=== PATIENT | male | born 1940 | race Caucasian/White ===

== ENCOUNTER 2021-09-16 23:56 | Inpatient (IN) | payer MEDICARE ==
[~2021-09-16] VITALS: Ht 177.8 cm; Wt 98.4 kg
[2021-09-17] MEDS ORDERED: GABA-532 PO (00:16)
[2021-09-17] MEDS ORDERED: ALBU8.5H8 IH (00:16)
[2021-09-17] MEDS ORDERED: TRAZ-257 PO (00:16)
[2021-09-17] MEDS ORDERED: FERR325T28 PO (00:16)
[2021-09-17] MEDS ORDERED: FURO20TA4 PO (00:16)
[2021-09-17] MEDS ORDERED: NICO-671 TD (00:16)
[2021-09-17] MEDS ORDERED: METF-440 PO (00:16)
[2021-09-17] MEDS ORDERED: FLUT1DIS28 IH (00:16)
[2021-09-17] MEDS ORDERED: PANT40TA49 PO (00:16)
--- NOTE | 2021-09-17 00:21 | NUR ---
Lab at bedside.
--- NOTE | 2021-09-17 00:34 | NUR ---
xray at bedside.
[2021-09-17 00:38] LABS: HEMATOCRIT 24.1 % (36.7-47.1); MEAN CORPUSCULAR HEMOGLOBIN 20.8 uug (23.8-33.4); MEAN CORPUSCULAR VOLUME 67.7 fL (73.0-96.2); PLATELET COUNT (AUTO) 240 K/uL (152-348)
[2021-09-17 00:49] LABS: NEUTROPHILS % (MANUAL) 0 % (42-75)
[2021-09-17 00:50] LABS: CREATININE 1.2 mg/dL (0.6-1.3); POTASSIUM 4.4 mmol/L (3.5-5.1)
[2021-09-17 00:56] LABS: BILIRUBIN,DIRECT 0.1 mg/dL (0.0-0.2); BILIRUBIN,TOTAL 0.3 mg/dL (0.2-1.0); TOTAL PROTEIN, SERUM 7.7 g/dL (6.4-8.2)
[2021-09-17] MEDS ORDERED: LORAZEPAM 0.5 MG TABLET PO ONE (01:30)
[2021-09-17] MEDS ORDERED: LORAZEPAM 1 MG TABLET ONE (01:52)
--- NOTE | 2021-09-17 02:11 | NUR ---
CALLED [facility], KARLIE PA.
[2021-09-17] MEDS ORDERED: ALBUTEROL SULFATE 8 GM HFA.AER.AD IH PRN (02:30)
[2021-09-17] MEDS ORDERED: HYDROCODONE/APAP 5-325MG TABLET PO PRN (02:30)
[2021-09-17] MEDS ORDERED: ONDANSETRON 4 MG/2 ML VIAL IV PRN (02:30)
[2021-09-17] MEDS ORDERED: REMEDY ESSENTIAL ZINC PASTE 113 GM TP PRN (02:30)
[2021-09-17] MEDS ORDERED: ACETAMINOPHEN 325 MG TABLET PO PRN (02:30)
[2021-09-17] MEDS ORDERED: MAGNESIUM HYDROXIDE 30 ML LIQUID UDC PO PRN (02:30)
[2021-09-17] MEDS ORDERED: TEMAZEPAM 15 MG CAPSULE PO PRN (02:30)
[2021-09-17] MEDS ORDERED: MORPHINE SULFATE 2 MG/1 ML DISP.SYRIN IV PRN (02:30)
--- NOTE | 2021-09-17 02:43 | NUR ---
PT A/O X3, EXPLAINED THAT PROTOCOLS OR REQUIRING IV BUT PT HAS STRONGLY REFUSED DESPITE EDUCATING. HONORED PT'S RIGHTS
--- NOTE | 2021-09-17 03:20 | NUR ---
GAVE REPORT TO
--- NOTE | 2021-09-17 03:50 | NUR ---
Admitted a 81 years old male with Dx of CHF, with 2ndary Dx of Microcytic Anemia. Patient AAOx3. On a 5150 hold up on 09/18 at 11:50am for DTS. Patient denies any SI at this time. Refused to have IV insertion at the ER and here at the unit. Requesting to have IV place in the morning. 1:1 sitter on site. Pale in appearance. NSR with PVC's and WAP on tele with HR of 88/min.Routine admission care done. Plan of care initiated. Safety measure initiated. Continue to monitor.
[2021-09-17 04:00] VITALS: BP 107/56
--- NOTE | 2021-09-17 04:00 | NUR ---
Pt. admitted to tele , under care of Darrell Jenkins Dx: Anemia, SI 5150 hold DTS Belongs List completed
[2021-09-17] MEDS ORDERED: ALBUTEROL SULFATE 2.5 MG/3 ML NEBU NEB PRN (05:45)
--- NOTE | 2021-09-17 06:24 | NUR ---
Patient asleep, but easily arouse to verbal stimuli. Still refusing to have IV insertion as well as blood draw. Stated "They already took my blood at the emergency room and that is it, Im not giving anymore". 1:1 sitter on site. Safety measure maintained.
[2021-09-17] MEDS ORDERED: PANTOPRAZOLE SODIUM 40 MG TABLET.DR PO SCH (07:00)
--- NOTE | 2021-09-17 07:48 | NUR ---
received awake sitter at bedside for safety. no ss of pain or sob noted. verbally responsive states he slept well dt medication given last night. comfortable. safety maintained. cont to monitor.
[2021-09-17] MEDS ORDERED: METFORMIN HCL 500 MG TABLET PO SCH (08:00)
[2021-09-17 08:30] VITALS: BP 125/52
[2021-09-17] MEDS ORDERED: FUROSEMIDE 20 MG TABLET PO SCH (09:00)
[2021-09-17] MEDS ORDERED: ASPIRIN 81 MG TAB.CHEW PO SCH (09:00)
[2021-09-17] MEDS ORDERED: NICOTINE 14 MG/24HR PATCH TD SCH (09:00)
[2021-09-17] MEDS ORDERED: FLUTICASONE/VILANTEROL 1 EACH BLST.W.DEV INH SCH (09:00)
[2021-09-17 12:00] VITALS: BP 114/63
--- NOTE | 2021-09-17 12:57 | NUR ---
for discharge to [facility] verbalized understanding. gave report to dariusz elkins
[2021-09-17] MEDS ORDERED: SERTRALINE HCL 50 MG TABLET PO SCH (13:00)
--- NOTE | 2021-09-17 13:30 | NUR ---
discharged to [facility] in stable condition. received by vincent elkins.
[2021-09-17] MEDS ORDERED: TRAZODONE 100 MG TABLET PO SCH (21:00)
[2021-09-17] MEDS ORDERED: GABAPENTIN 300 MG CAPSULE PO SCH (21:00)
== END 2021-09-17 13:30 | DRG 378 ==
LOC: ER 09-17 00:06 → TELE3 09-17 03:31
DX: K27.4 Chronic or unspecified peptic ulcer, site unspecified, with hemorrhage (principal); I48.20 Chronic atrial fibrillation, unspecified; I50.32 Chronic diastolic (congestive) heart failure; R45.851 Suicidal ideations; D50.0 Iron deficiency anemia secondary to blood loss (chronic); N18.2 Chronic kidney disease, stage 2 (mild); F17.210 Nicotine dependence, cigarettes, uncomplicated; F32.9 Major depressive disorder, single episode, unspecified; M19.90 Unspecified osteoarthritis, unspecified site; F19.10 Other psychoactive substance abuse, uncomplicated
CPT/HCPCS: 36415; 70030-TC; 71045; 85025; 93005; 93307; A4663; G0378

== ENCOUNTER 2021-09-17 14:42 | Inpatient (IN) | payer MEDICARE ==
[~2021-09-17] VITALS: Ht 170.2 cm; Wt 96.6 kg
[~2021-09-17 14:42] MED LIST: ALBU8.5H8 IH; FERR325T28 PO; FLUT1DIS28 IH; FURO20TA4 PO; GABA-532 PO; METF-440 PO; NICO-671 TD; PANT40TA49 PO; TRAZ-257 PO
--- NOTE | 2021-09-17 15:30 | NUR ---
GPS: RECEIVED REPORT FROM BRODERICK TAMEZ FROM [facility]RD FLOOR [facility] RE: PT ADMISSION TO UNIT. ON 5150, PROBABLE CAUSE DANGER TO SELF HOLD EXPIRING TOMORROW 09/18/21 AT 1150AM. PER 5150, PT HOLDING KNIFE AND IN POSSESSION OF BUNCH OF PILLS. PT HAS LOW HcT LEVEL AND WAS MEDICALLY CLEARED PER MD. WITH HISTORY OF CHRONIC ANEMIA, MD, MAJOR DEPRESSIVE DISORDER, COGNITIVE DISORDER, TOBACO AND ETOH ABUSE AND GI BLEEDING. PT REFUSED LAB WORKS, GI WORKUP AND IV INSERTION AT MED SURG. PT WAS GIVEN ZOLOFT. PT HAVE HARD OF HEARING BILATERALLY, WITH HEARING AID LEFT AT HOME. PT AMBULATORY, WITH CANE. ALLERGY TO PENICILLIN AND FULL CODE STATUS. DR WHITTAKER INFORMED ABOUT PT ADMISSION. CITY COUNCIL MEMBER DR GOVEA MADE AWARE. RECEIVED PT AT THE FACILITY, PT FLAT AFFECT, HAVE HARD OF HEARING, EASILY GETS IRRITABLE, FLAT AFFECT, DENIES SUICIDAL IDEATION. COOPERATIVE BUT SOMEWHAT GUARDED. PT DENIES ANY PAIN OR DISCOMFORT. WILL MONITOR PT.
[2021-09-17] MEDS ORDERED: MAG HYDROX/AL HYDROX/SIMETH 30 ML LIQUID UDC PO PRN (15:45)
[2021-09-17] MEDS ORDERED: MAGNESIUM HYDROXIDE 30 ML LIQUID UDC PO PRN (15:45)
[2021-09-17] MEDS ORDERED: TEMAZEPAM 7.5 MG CAPSULE PO PRN (15:45)
[2021-09-17 16:45] VITALS: BP 124/70
[2021-09-17 19:45] VITALS: BP 100/53
[2021-09-17] MEDS: ACETAMINOPHEN 325 MG TABLET PO PRN (20:51)
--- NOTE | 2021-09-18 06:02 | NUR ---
received patient in his room, A&0x3. patient denies self harm and contract safety with the filing writer. Patient requests Tylenol for back pain and Tamazepam with effectiveness as patient sleeps 8.0 hours with no apparent distress noted.
[2021-09-18] MEDS ORDERED: ALBUTEROL SULFATE 8 GM HFA.AER.AD IH PRN (10:30)
--- NOTE | 2021-09-18 10:30 | NUR ---
GPS: PT ALERT AND VERBALLY RESPONSIVE. SEEN TODAY BY PHYSICAL THERAPIST FOR EVALUATION. PT DENIES ANY SUICIDAL IDEATION. NO AGITATION NOTED. COOPERATIVE WITH CARE.
[2021-09-18] MEDS ORDERED: ALBUTEROL SULFATE 2.5 MG/3 ML NEBU NEB PRN (10:45)
--- NOTE | 2021-09-18 11:42 | NUR ---
GPS: FILED THE 5250 TO [facility] PROBABLE CAUSE DANGER TO SELF AND GRAVE DISABILITY. PT GIVEN A COPY OF THE 525 14 DAY HOLD, SIGNED BY MD AND COUNTY TREASURER. PT WITH DEPRESSION AND SUICIDAL IDEATION, NO PLAN OF CARE AND DANGER TO SELF.
[2021-09-18] MEDS: SERTRALINE HCL 50 MG TABLET PO SCH (13:36)
[2021-09-18] MEDS: FLUTICASONE/VILANTEROL 1 EACH BLST.W.DEV INH SCH (13:36)
--- NOTE | 2021-09-18 15:40 | NUR ---
GPS: RECEIVED A REPORT FROM [facility] THAT PT HAVE + POSITIVE MRSA RESULT IN NARES. WILL REPORT TO WET WASHER MACHINE AND INFECTION CONTROL.
--- NOTE | 2021-09-18 15:47 | NUR ---
AGRICULTURAL EXTENSION AGENT ORDERED MUPIROCIN TO APPLY IN NARES BID. NOTIFIED PT.
[2021-09-18 16:00] VITALS: BP 103/52
[2021-09-18] MEDS ORDERED: FLUTICASONE/SALMETEROL 250/50 INHALER IH SCH (17:00)
[2021-09-18] MEDS: PANTOPRAZOLE SODIUM 40 MG TABLET.DR PO SCH (17:32)
--- NOTE | 2021-09-18 18:18 | NUR ---
GPS: PT ISOLATIVE, STAYING IN THE ROOM. WILL ENCOURAGE MORE TO PARTICIPATE WITH GROUP THERAPY. PT LOOKS DEPRESSED AND WITHDRAWN, GUARDED. WILL MONITOR BACTROBAN APPLIED TO BOTH NARES FOR MRSA.
[2021-09-18] MEDS: MIRTAZAPINE 15 MG TABLET PO SCH (20:27)
[2021-09-18] MEDS: MUPIROCIN 2% OINT 22 GM TUBE NS SCH (20:36)
[2021-09-18] MEDS: ACETAMINOPHEN 325 MG TABLET PO PRN (20:43)
[2021-09-18 21:04] VITALS: BP 104/53
[2021-09-19] MEDS: PANTOPRAZOLE SODIUM 40 MG TABLET.DR PO SCH ×2 (06:18→17:57)
[2021-09-19 07:44] VITALS: BP 113/56
[2021-09-19] MEDS: NICOTINE 14 MG/24HR PATCH TD SCH ×2 (08:48→09:20)
[2021-09-19] MEDS: FERROUS SULFATE 325 MG TABEC PO SCH (08:49)
[2021-09-19] MEDS: FUROSEMIDE 20 MG TABLET PO SCH (08:49)
[2021-09-19] MEDS: METFORMIN HCL 500 MG TABLET PO SCH (08:49)
[2021-09-19] MEDS: FLUTICASONE/VILANTEROL 1 EACH BLST.W.DEV INH SCH (08:50)
[2021-09-19] MEDS: MUPIROCIN 2% OINT 22 GM TUBE NS SCH ×2 (08:50→09:20)
--- NOTE | 2021-09-19 09:24 | NUR ---
GPS: PT DEPRESSED AND WITHDRAWN, ISOLATIVE, STAYING ON BED. PT REFUSED NICOTINE PATCH AND BACTROBAN OINTMENT FOR MRSA. PT STATED "IT DOES NOT HELP ME AT ALL". EXPLAINED THE RISK AND BENEFIT. PT STILL REFUSED. PT ENCOURAGE TO ATTEND GROUP THERAPY.
[2021-09-19] MEDS: SERTRALINE HCL 50 MG TABLET PO SCH (13:57)
--- NOTE | 2021-09-19 14:36 | NUR ---
BREANNE Initial Discharge Note: Pt is a 81 year old male admitted to [facility] on a 5150 hold for MAJOR DEPRESSIVE DISORDER, SINGLE EPISODE UNSPECIFIED. Pt currently resides at home located at [address] [place] [address] with his pharmacist aide, Jackie ([phone]). Jackie stated she is worried for his safety due to stating suicidal ideations and she is not sure if she can continue to take care of him in his current state of mind. BREANNE stated this health science writer will work with the doctor to discuss possible group home facilities for the pt. BREANNE stated to Shantell that this health science writer cannot contact pt's daughter due to pt stating, "I don't want you talking to my daughter or sons." BREANNE will continue to work with pt, family and MD to ensure a safe and proper discharge plan for the pt.
[2021-09-19 16:02] VITALS: BP 111/57
[2021-09-19 19:55] VITALS: BP 116/53
[2021-09-19] MEDS: ACETAMINOPHEN 325 MG TABLET PO PRN (20:51)
[2021-09-19] MEDS: MIRTAZAPINE 15 MG TABLET PO SCH (20:51)
--- NOTE | 2021-09-20 05:36 | NUR ---
Patient in his room, looking unkempt. A&0x3. Patient isolative in his room. Only comes out in the dayroom for snacks. Encouraged to shower but refused. Patient remain compliant with medication.Patient sleeps most of the night. Safety checks done.
[2021-09-20] MEDS: PANTOPRAZOLE SODIUM 40 MG TABLET.DR PO SCH ×2 (06:06→16:47)
[2021-09-20] MEDS: NICOTINE 14 MG/24HR PATCH TD SCH (08:36)
[2021-09-20] MEDS: FUROSEMIDE 20 MG TABLET PO SCH (08:36)
[2021-09-20] MEDS: METFORMIN HCL 500 MG TABLET PO SCH (08:36)
[2021-09-20] MEDS: FERROUS SULFATE 325 MG TABEC PO SCH (08:36)
[2021-09-20] MEDS: FLUTICASONE/VILANTEROL 1 EACH BLST.W.DEV INH SCH (08:36)
[2021-09-20] MEDS: MUPIROCIN 2% OINT 22 GM TUBE NS SCH ×2 (08:36→20:13)
[2021-09-20 08:48] VITALS: BP 139/82
--- NOTE | 2021-09-20 09:28 | NUR ---
Pt received sitting in day room watching TV. Calm and cooperative. Pleasant upon approach. Compliant with medications and care. No aggressive or combative behavior noted. Denies pain or discomfort. Denies SI at this time.
[2021-09-20] MEDS: SERTRALINE HCL 50 MG TABLET PO SCH (12:13)
[2021-09-20 16:00] VITALS: BP 127/70
[2021-09-20 19:45] VITALS: BP 117/64
[2021-09-20] MEDS: MIRTAZAPINE 15 MG TABLET PO SCH (20:13)
[2021-09-20] MEDS: LORAZEPAM 0.5 MG TABLET PO PRN (21:09)
[2021-09-20] MEDS: ACETAMINOPHEN 325 MG TABLET PO PRN (21:09)
[2021-09-21] MEDS: PANTOPRAZOLE SODIUM 40 MG TABLET.DR PO SCH ×2 (06:24→16:08)
[2021-09-21 07:58] VITALS: BP 117/66
[2021-09-21] MEDS: FERROUS SULFATE 325 MG TABEC PO SCH (08:05)
[2021-09-21] MEDS: MUPIROCIN 2% OINT 22 GM TUBE NS SCH ×2 (08:05→20:31)
[2021-09-21] MEDS: NICOTINE 14 MG/24HR PATCH TD SCH (08:05)
[2021-09-21] MEDS: METFORMIN HCL 500 MG TABLET PO SCH (08:05)
[2021-09-21] MEDS: FLUTICASONE/VILANTEROL 1 EACH BLST.W.DEV INH SCH (08:06)
[2021-09-21] MEDS: FUROSEMIDE 20 MG TABLET PO SCH (08:06)
[2021-09-21] MEDS: SERTRALINE HCL 50 MG TABLET PO SCH (12:51)
[2021-09-21 14:35] VITALS: BP 102/52
[2021-09-21 19:31] VITALS: BP 130/66
[2021-09-21] MEDS: LORAZEPAM 0.5 MG TABLET PO PRN (20:31)
[2021-09-21] MEDS: MIRTAZAPINE 15 MG TABLET PO SCH (20:31)
[2021-09-21] MEDS: ACETAMINOPHEN 325 MG TABLET PO PRN (20:35)
[2021-09-22] MEDS: PANTOPRAZOLE SODIUM 40 MG TABLET.DR PO SCH ×2 (06:22→17:03)
[2021-09-22 08:06] VITALS: BP 140/83
[2021-09-22] MEDS: NICOTINE 14 MG/24HR PATCH TD SCH (08:41)
[2021-09-22] MEDS: FERROUS SULFATE 325 MG TABEC PO SCH (08:41)
[2021-09-22] MEDS: MUPIROCIN 2% OINT 22 GM TUBE NS SCH ×2 (08:42→20:28)
[2021-09-22] MEDS: FUROSEMIDE 20 MG TABLET PO SCH (08:42)
[2021-09-22] MEDS: METFORMIN HCL 500 MG TABLET PO SCH (08:42)
[2021-09-22] MEDS: FLUTICASONE/VILANTEROL 1 EACH BLST.W.DEV INH SCH (08:42)
[2021-09-22] MEDS: SERTRALINE HCL 50 MG TABLET PO SCH (13:13)
[2021-09-22 16:36] VITALS: BP 99/45
--- NOTE | 2021-09-22 18:23 | NUR ---
Received sitting in his bed Pleasant upon approach. Compliant with medications and care. No aggressive or combative behavior noted. Denies pain or discomfort. Denies SI at this time.
[2021-09-22 19:45] VITALS: BP 137/66
[2021-09-22] MEDS: MIRTAZAPINE 15 MG TABLET PO SCH (20:38)
[2021-09-22] MEDS: LORAZEPAM 0.5 MG TABLET PO PRN (20:38)
[2021-09-22] MEDS: ACETAMINOPHEN 325 MG TABLET PO PRN (20:38)
[2021-09-23] MEDS: PANTOPRAZOLE SODIUM 40 MG TABLET.DR PO SCH ×2 (06:17→17:20)
--- NOTE | 2021-09-23 06:32 | NUR ---
GPS: Pt.slept 7.45 last night. Noted to be easily irritable this am when approached. Denies SI. Safe environment provided. Will continue to monitor.
[2021-09-23 08:00] VITALS: BP 102/72
[2021-09-23] MEDS: FLUTICASONE/VILANTEROL 1 EACH BLST.W.DEV INH SCH (08:28)
[2021-09-23] MEDS: METFORMIN HCL 500 MG TABLET PO SCH (08:28)
[2021-09-23] MEDS: FUROSEMIDE 20 MG TABLET PO SCH (08:28)
[2021-09-23] MEDS: MUPIROCIN 2% OINT 22 GM TUBE NS SCH ×2 (08:28→21:37)
[2021-09-23] MEDS: FERROUS SULFATE 325 MG TABEC PO SCH (08:28)
[2021-09-23] MEDS: NICOTINE 14 MG/24HR PATCH TD SCH (08:29)
[2021-09-23] MEDS: DIVALPROEX 125 MG TABLET.DR PO SCH ×2 (12:26→17:20)
[2021-09-23] MEDS ORDERED: DIVALPROEX 250 MG TABLET.DR PO SCH (13:00)
[2021-09-23 14:37] VITALS: BP 117/54
--- NOTE | 2021-09-23 14:44 | NUR ---
Firearms Report: Java Development Team Lead completed and submitted a [employer] firearms report for 5150 a danger to himself. A copy of report has been placed in patient chart.
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
--- NOTE | 2021-09-23 15:51 | NUR ---
patient remains isolative withdrawn with min. interaction with staffs and peers,lying in bed asleep most of time. feels hopeless and helpless ,encourage to attend in group activity and participated ,encourage to express feeling and will close monitoring.
[2021-09-23 19:00] VITALS: BP 107/58
[2021-09-23] MEDS ORDERED: QUETIAPINE FUMARATE 25 MG TABLET PO SCH (21:00)
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
[2021-09-23] MEDS: LORAZEPAM 0.5 MG TABLET PO PRN (21:36)
[2021-09-23] MEDS: ACETAMINOPHEN 325 MG TABLET PO PRN (21:36)
[2021-09-24] MEDS: PANTOPRAZOLE SODIUM 40 MG TABLET.DR PO SCH ×2 (07:41→17:32)
[2021-09-24 08:37] VITALS: BP 109/96
[2021-09-24] MEDS: DIVALPROEX 125 MG TABLET.DR PO SCH ×2 (08:57→12:26)
[2021-09-24] MEDS: FUROSEMIDE 20 MG TABLET PO SCH (08:57)
[2021-09-24] MEDS: FLUTICASONE/VILANTEROL 1 EACH BLST.W.DEV INH SCH (08:57)
[2021-09-24] MEDS: METFORMIN HCL 500 MG TABLET PO SCH (08:57)
[2021-09-24] MEDS: MUPIROCIN 2% OINT 22 GM TUBE NS SCH ×2 (09:00→20:45)
[2021-09-24] MEDS: NICOTINE 14 MG/24HR PATCH TD SCH (09:00)
[2021-09-24] MEDS: FERROUS SULFATE 325 MG TABEC PO SCH (09:00)
--- NOTE | 2021-09-24 09:48 | NUR ---
BREANNE Family Contact Update: SW contacted Pt's basket grader, Jackie ([phone]) stated to SW today that she has not heard back from APS regarding the report she made prior to pt's admission to [facility]. BREANNE also spoke with pt's daughter, Aylin ([phone]) who stated to SW that she as well has not received further information from APS. Both Jackie and Aylin have reported to this SW that they are concerned for the pt's well-being and continuation of care and would like to pt to discharge to a jail facility. This SW stated that SW will work with the MD to ensure a safe and proper discharge plan to a jail facility upon discharge. BREANNE stated to Aylin and Jackie that this SW will continue to be in contact with both of them regarding pt's status and discharge updates. Jackie and Champgely reported to SW that they are concerned that APS will not respond pt will continue to be allowed to make decisions for himself despite pt appearing with delusional thoughts and prior suicidal ideation. SW informed them that this SW will work with the MD to ensure a safe plan for the pt and SW will continue to follow-up with APS daily and inform them of any updates.
--- NOTE | 2021-09-24 10:00 | NUR ---
RECEIVED PATIENT IN HIS ROOM IN BED. HE IS NOTED A/O X 2, HE CONTINUE ISOLATIVE AND FIXED ON GOING HOME. HE SLEPT FOR APPROX. 8.30 HRS THROUGH THE NIGHT. PATIENT REFUSED HIS IRON PILL, NICOTINE PATCH AND BACTROBAN, BUT HE WAS ABLE TO TAKE THE REST OF HIS MEDICATIONS. Patient v/s are stable, he is reassured for his safety. safety and fall precaution in place. will continue to monitor.
--- NOTE | 2021-09-24 15:44 | NUR ---
APS: This SW submitted an APS report per MD's request. APS confirmation #[id number]. A copy of the report is placed in the pt's chart. SW will follow-up with Pt's political consultant, Jackie ([phone]) and pt's daughter, Aylin ([phone]) regarding SW's new APS report made.
[2021-09-24 16:03] VITALS: BP 99/54
[2021-09-24] MEDS ORDERED: DIVALPROEX 125 MG TABLET.DR PO SCH (17:00)
[2021-09-24] MEDS: DIVALPROEX 250 MG TABLET.DR PO SCH (17:32)
[2021-09-24] MEDS: ACETAMINOPHEN 325 MG TABLET PO PRN (20:48)
[2021-09-24 20:53] VITALS: BP 154/83
[2021-09-24] MEDS ORDERED: QUETIAPINE FUMARATE 25 MG TABLET PO SCH (21:00)
[2021-09-24] MEDS: LORAZEPAM 0.5 MG TABLET PO PRN (22:24)
--- NOTE | 2021-09-25 01:52 | NUR ---
PATIENT RECEIVED IN ACTIVITIES ROOM INTERACTING WITH PEERS. PATIENT IS ALERT/ORIENTED X3. PATIENT IS ABLE TO MAKE NEEDS KNOWN. PATIENT IS COMPLAINT WITH MEDICATION. PATIENT REFUSED BACTORBAN EDUCATED THE IMPORTANCE OF RECEIVING FULL TREATMENT, PATIENT CONTINUED TO REFUSE. PATIENT DENIES SI. PATIENT IS IN NO APPARENT DISTRESS OR AGGRESSIVE TOWARDS STAFF, HOWEVER, PATIENT IS EASILY IRRITABLE ABLE TO REDIRECT WITH GOOD OUTCOME. SAFETY MEASURES RENDERED, BED IN LOWEST POSITION, BED LOCKED, AND BED ALARM ON WHILE IN BED.
[2021-09-25] MEDS: PANTOPRAZOLE SODIUM 40 MG TABLET.DR PO SCH ×2 (06:36→17:36)
[2021-09-25] MEDS: NICOTINE 14 MG/24HR PATCH TD SCH ×3 (08:18→09:00)
[2021-09-25] MEDS: FERROUS SULFATE 325 MG TABEC PO SCH (08:18)
[2021-09-25] MEDS: FUROSEMIDE 20 MG TABLET PO SCH (08:18)
[2021-09-25] MEDS: METFORMIN HCL 500 MG TABLET PO SCH (08:18)
[2021-09-25] MEDS: FLUTICASONE/VILANTEROL 1 EACH BLST.W.DEV INH SCH (08:18)
[2021-09-25] MEDS: DIVALPROEX 125 MG TABLET.DR PO SCH (08:18)
[2021-09-25] MEDS: MUPIROCIN 2% OINT 22 GM TUBE NS SCH (08:18)
[2021-09-25 08:39] VITALS: BP 106/52
--- NOTE | 2021-09-25 09:38 | NUR ---
GPS: RECEIVED PT ON BED. DENIES PAIN OR DISCOMFORT. PT ISOLATIVE, WITHDRAWN. ENCOURAGED TO ATTEND GROUP THERAPY. REFUSED. PT DENIES SI. REFUSED BACTROBAN OINTMENT FOR MRSA NARES, ALSO REFUSED NICOTINE PATCH, STATING " IT DOES NOT WORK ON ME". EXPLAINED RISK AND BENEFITS. NOT IN DISTRESS AT THIS TIME. COMPLIANT WITH CARE AND ORAL MEDS.
[2021-09-25] MEDS: DIVALPROEX 250 MG TABLET.DR PO SCH ×2 (13:10→17:36)
--- NOTE | 2021-09-25 14:35 | NUR ---
SNF Referral: SW faxed patient's referral packet including: History and Physical, Consultation, Progress Notes, Medication List and Labs to the following facilities for review and possible senior living placement: [facility] located at [id number] [place] [phone] ([phone]) and spoke with Yun.
[2021-09-25 16:00] VITALS: BP 116/67
--- NOTE | 2021-09-25 18:16 | NUR ---
GPS: PT IN ACTIVITY ROOM WATCHING TV AND HAD DINNER. PT EASILY GETS IRRITATED AND BIT SARCASTIC WHEN ANSWERING BACK. PT DENIES PAIN OR DISCOMFORT. COMPLIANT WITH CARE AND MEDS.
[2021-09-25 19:40] VITALS: BP 114/67
[2021-09-25] MEDS: QUETIAPINE FUMARATE 25 MG TABLET PO SCH (20:11)
[2021-09-25] MEDS: ACETAMINOPHEN 325 MG TABLET PO PRN (20:14)
[2021-09-25] MEDS: LORAZEPAM 0.5 MG TABLET PO PRN (20:14)
[2021-09-26] MEDS: PANTOPRAZOLE SODIUM 40 MG TABLET.DR PO SCH ×2 (06:18→16:49)
[2021-09-26 07:19] LABS: IRON, SERUM 13 ug/dL (50-175)
[2021-09-26 07:21] LABS: HEMATOCRIT 24.3 % (36.7-47.1)
[2021-09-26 07:22] LABS: MEAN CORPUSCULAR VOLUME 65.5 fL (73.0-96.2); PLATELET COUNT (AUTO) 314 K/uL (152-348)
[2021-09-26 07:29] LABS: THYROID STIMULATING HORMONE 0.197 mIU/mL (0.358-3.740)
[2021-09-26 07:43] LABS: ALANINE AMINOTRANSFERASE 15 U/L (16-63); ALKALINE PHOSPHATASE 81 U/L (50-136); ASPARTATE AMINOTRANSFERASE 6 U/L (15-37); BILIRUBIN,TOTAL 0.3 mg/dL (0.2-1.0); CARBON DIOXIDE 28 mmol/L (21-32); CHLORIDE 106 mmol/L (98-107); CHOLESTEROL 147 mg/dL (<200); CREATININE 1.4 mg/dL (0.6-1.3); GLUCOSE 94 mg/dL (74-106); HDL CHOLESTEROL 32 mg/dL (40-60); MAGNESIUM 2.1 mg/dL (1.8-2.4); TRIGLYCERIDES 109 MG/DL (30-150); UREA NITROGEN, BLOOD 21 mg/dL (7-18)
--- NOTE | 2021-09-26 07:43 | NUR ---
GPS: RECEIVED A CALL FROM LAB, WITH CRITICAL LAB VALUES OF [facility] 7.4 . PT 09/17/21 [facility] WAS THE SAME 7.4 , REPORTED TO LAP GRINDER. WILL WAIT FOR RESPONSE.
[2021-09-26 07:56] VITALS: BP 123/54
[2021-09-26] MEDS: DIVALPROEX 250 MG TABLET.DR PO SCH ×3 (08:19→16:49)
[2021-09-26] MEDS: METFORMIN HCL 500 MG TABLET PO SCH (08:19)
[2021-09-26] MEDS: FLUTICASONE/VILANTEROL 1 EACH BLST.W.DEV INH SCH (08:20)
[2021-09-26] MEDS: FUROSEMIDE 20 MG TABLET PO SCH (08:20)
[2021-09-26] MEDS: NICOTINE 14 MG/24HR PATCH TD SCH (08:39)
[2021-09-26] MEDS: FERROUS SULFATE 325 MG TABEC PO SCH (08:39)
--- NOTE | 2021-09-26 09:17 | NUR ---
GPS: PT RECEIVED ON BED, AWAKE, ALERT AND VERBALLY RESPONSIVE. AM MEDS GIVEN AND TOLERATED WELL EXCEPT FOR FERROUS SULFATE AND LIDOCAINE PATCH THAT PT REFUSED, EVEN AFTER EXPLAINING RISK AND BENEFITS. PER PT, HE'S NOT BEEN TAKING THE FeSO4 EVER SINCE. PT ISOLATIVE, WITHDRAWN AND DEPRESSED AND EASILY GETS IRRITABLE. ENCOURAGED TO PARTICIPATE WITH GROUP THERAPY BUT PT REFUSED. CRITICAL LAB [facility] 7.4 REPORTED, PER VISUAL ARTS TEACHER HE WILL TAKE A LOOK AT IT. INSTRUCTED PT, WILL GET STOOL SPECIMEN FOR OCCULT BLOOD TEST.
[2021-09-26 16:24] VITALS: BP 114/56
--- NOTE | 2021-09-26 17:38 | NUR ---
PT STAYED AT THE ACTIVITY ROOM MOST OF THE AFTERNOON ENJOYING WATCHING TV WITH OTHER PT AND HAVING SOME CONVERSATION. PT PARTICIPATED A BIT OF HIS TIME WITH THE GROUP ACTIVITY. COMPLIANT WITH MEDS. NOT IN DISTRESS AT THIS TIME.
[2021-09-26 20:00] VITALS: BP 100/60
[2021-09-26] MEDS: QUETIAPINE FUMARATE 25 MG TABLET PO SCH (20:09)
[2021-09-26] MEDS: LORAZEPAM 0.5 MG TABLET PO PRN (21:20)
[2021-09-26] MEDS: ACETAMINOPHEN 325 MG TABLET PO PRN (21:20)
[2021-09-27] MEDS: PANTOPRAZOLE SODIUM 40 MG TABLET.DR PO SCH ×2 (06:12→17:28)
--- NOTE | 2021-09-27 06:37 | NUR ---
gps notes; patient A&0x3. no respiratory distress noted. patient compliant with medication. patient redirectable. able to make needs known. Prn ativan given with effectivity. patient slept well. safety kept in place
[2021-09-27 07:35] VITALS: BP 126/59
[2021-09-27] MEDS: FUROSEMIDE 20 MG TABLET PO SCH (08:34)
[2021-09-27] MEDS: FLUTICASONE/VILANTEROL 1 EACH BLST.W.DEV INH SCH (08:34)
[2021-09-27] MEDS: FERROUS SULFATE 325 MG TABEC PO SCH (08:34)
[2021-09-27] MEDS: METFORMIN HCL 500 MG TABLET PO SCH (08:34)
[2021-09-27] MEDS: DIVALPROEX 250 MG TABLET.DR PO SCH ×3 (08:34→17:28)
[2021-09-27] MEDS: NICOTINE 14 MG/24HR PATCH TD SCH (08:34)
[2021-09-27 16:40] VITALS: BP 119/56
--- NOTE | 2021-09-27 18:32 | NUR ---
GPS: PT SEEN AND OBSERVED TODAY AND DENIES ANY PAIN OR DISCOMFORT. PT COMPLIANT WITH CARE AND MEDS. EASILY GETS IRRITABLE BUT REDIRECTABLE AT ONCE. PT STAYED IN THE ACTIVITY ROOM AND LIKES WATCHING TV AND TALK TO PEER. NO AGITATION NOTED TODAY.
--- NOTE | 2021-09-27 20:25 | NUR ---
Received patient in his room in bed. he is noted awake A/O x 3. he is able to verbalized his feelings. he denied SI/ he is able to verbally CFS. patient aware of his discharge schedule for next Thursday. V/S stable. he was given PO fluids and snacks. He is reassured for his safety. safety and fall precaution are in place. will continue to monitor.
--- NOTE | 2021-09-27 20:30 | NUR ---
Received patient in his room in bed. he is noted awake A/O x 3. he is able to verbalized his feelings. he denied SI/ he is able to verbally CFS. patient aware of his discharge schedule for next Thursday. V/S stable. he was given PO fluids and snacvks
[2021-09-27] MEDS: QUETIAPINE FUMARATE 25 MG TABLET PO SCH (21:18)
[2021-09-27] MEDS: LORAZEPAM 0.5 MG TABLET PO PRN (21:41)
[2021-09-27] MEDS: ACETAMINOPHEN 325 MG TABLET PO PRN (21:41)
[2021-09-27 21:45] VITALS: BP 112/58
[2021-09-28] MEDS: PANTOPRAZOLE SODIUM 40 MG TABLET.DR PO SCH ×2 (06:44→17:13)
[2021-09-28 07:51] VITALS: BP 92/49
[2021-09-28] MEDS: METFORMIN HCL 500 MG TABLET PO SCH (08:18)
[2021-09-28] MEDS: DIVALPROEX 250 MG TABLET.DR PO SCH ×3 (08:18→17:13)
[2021-09-28] MEDS: FUROSEMIDE 20 MG TABLET PO SCH (08:18)
[2021-09-28] MEDS: FERROUS SULFATE 325 MG TABEC PO SCH (08:19)
[2021-09-28] MEDS: NICOTINE 14 MG/24HR PATCH TD SCH (08:19)
[2021-09-28] MEDS: FLUTICASONE/VILANTEROL 1 EACH BLST.W.DEV INH SCH (08:19)
--- NOTE | 2021-09-28 10:47 | NUR ---
GPS: PT RECEIVED ON BED. DENIES PAIN OR DISCOMFORT. ISOLATIVE, DEPRESSED. NO AGITATION AT THIS TIME. COMPLIANT WITH MEDS BUT REFUSED NICOTINE PATCH AND FERROUS SULFATE.
[2021-09-28 16:06] VITALS: BP 92/53
[2021-09-28 20:00] VITALS: BP 102/56
[2021-09-28] MEDS: QUETIAPINE FUMARATE 25 MG TABLET PO SCH (20:35)
--- NOTE | 2021-09-28 21:00 | NUR ---
RECEIVED PATIENT IN THE DAY ROOM WATCHING TV. HE IS NOTED A/O X 2 TO 3. HE IS CALM AND PLEASANT UPON APPROACHED. PATIENT DENIED SI AND HE IS ABLE TO VERBALLY CFS. PATIENT IS AWARE OF HIS INCOMING DISCHARGE TO [facility] AND HE AGREED. HIS V/S ARE STABLE. HE WAS GIVEN PO FLUID AND SNACKS. HE IS REASSURED FORT HIS SAFETY. SAFETY AND FALL PRECAUTION ARE IN PLACE. WILL CONTINUE TO MONITOR.
[2021-09-28] MEDS: LORAZEPAM 0.5 MG TABLET PO PRN (21:28)
[2021-09-28] MEDS: ACETAMINOPHEN 325 MG TABLET PO PRN (21:28)
[2021-09-29] MEDS: PANTOPRAZOLE SODIUM 40 MG TABLET.DR PO SCH ×2 (07:12→16:34)
[2021-09-29 07:37] VITALS: BP 94/53
[2021-09-29] MEDS: DIVALPROEX 250 MG TABLET.DR PO SCH ×3 (08:01→16:34)
[2021-09-29] MEDS: METFORMIN HCL 500 MG TABLET PO SCH (08:02)
[2021-09-29] MEDS: FUROSEMIDE 20 MG TABLET PO SCH (08:02)
[2021-09-29] MEDS: FLUTICASONE/VILANTEROL 1 EACH BLST.W.DEV INH SCH (08:04)
[2021-09-29] MEDS: FERROUS SULFATE 325 MG TABEC PO SCH (08:09)
[2021-09-29] MEDS: NICOTINE 14 MG/24HR PATCH TD SCH (08:09)
[2021-09-29 16:07] VITALS: BP 109/62
[2021-09-29 20:04] VITALS: BP 120/65
[2021-09-29] MEDS: QUETIAPINE FUMARATE 25 MG TABLET PO SCH (20:33)
[2021-09-29] MEDS: ACETAMINOPHEN 325 MG TABLET PO PRN (21:20)
[2021-09-29] MEDS: LORAZEPAM 0.5 MG TABLET PO PRN (21:20)
--- NOTE | 2021-09-29 21:32 | NUR ---
GPS NOTES: received patient in the day room, interacting appropriately with his peers. Patient responsive to verbal stimuli, no apparent distress noted. patient compliant with medications. patient denies any behavioral symptoms. Patient to be discharge in the AM. covid swab done. safety measures in place
--- NOTE | 2021-09-29 23:00 | NUR ---
Received patient in his room in bed sleeping. Safety and fall precaution are in place. will continue to monitor.
[2021-09-30] MEDS: PANTOPRAZOLE SODIUM 40 MG TABLET.DR PO SCH (06:16)
[2021-09-30 07:20] LABS: ALANINE AMINOTRANSFERASE 14 U/L (16-63); ALKALINE PHOSPHATASE 77 U/L (50-136); ASPARTATE AMINOTRANSFERASE < 5 U/L (15-37); BILIRUBIN,TOTAL 0.3 mg/dL (0.2-1.0); CARBON DIOXIDE 29 mmol/L (21-32); CHLORIDE 106 mmol/L (98-107); CREATININE 1.3 mg/dL (0.6-1.3); GLUCOSE 84 mg/dL (74-106); MAGNESIUM 2.2 mg/dL (1.8-2.4); PHOSPHOROUS 4.3 mg/dL (2.5-4.9); POTASSIUM 4.6 mmol/L (3.5-5.1); TOTAL PROTEIN, SERUM 6.5 g/dL (6.4-8.2); UREA NITROGEN, BLOOD 16 mg/dL (7-18)
[2021-09-30 07:21] LABS: HEMATOCRIT 23.5 % (36.7-47.1); MEAN CORPUSCULAR HEMOGLOBIN 19.9 uug (23.8-33.4); MEAN CORPUSCULAR VOLUME 65.4 fL (73.0-96.2); PLATELET COUNT (AUTO) 266 K/uL (152-348)
[2021-09-30 07:39] VITALS: BP 151/67
--- NOTE | 2021-09-30 07:57 | NUR ---
received critical Lab report from Lab H and H is 7.2/23.5, did not report to street and building decorator due to pt had chronic anemia has been refused for blood transfusion and GI work out.
[2021-09-30] MEDS: DIVALPROEX 250 MG TABLET.DR PO SCH ×2 (08:47→12:56)
[2021-09-30] MEDS: METFORMIN HCL 500 MG TABLET PO SCH (08:47)
[2021-09-30] MEDS: FUROSEMIDE 20 MG TABLET PO SCH (08:47)
[2021-09-30] MEDS: FLUTICASONE/VILANTEROL 1 EACH BLST.W.DEV INH SCH (08:47)
[2021-09-30] MEDS: NICOTINE 14 MG/24HR PATCH TD SCH (08:47)
[2021-09-30] MEDS: FERROUS SULFATE 325 MG TABEC PO SCH (08:47)
--- NOTE | 2021-09-30 10:15 | NUR ---
BREANNE Discharge Note: Pt will be discharged to [facility] [address] [place] [address] ([phone]) via Ambulance transportation at 1PM. BREANNE spoke with admin coordinator, Niraj at the facility who states they are ready to accept the patient today. Pt is aware and agreeable with discharge plans. BREANNE contacted and left 2 detailed voicemails for pts daughter, Aylin ([phone]) regarding the discharge plan. Pt is alert and oriented x1(name), is unable to plan for self-care at this time; however, is willing to accept care at SNF. Pt denies any suicidal or homicidal ideation. Pt will follow-up at the facility with Psychiatrist, Dr. Luna and Front Worker, Dr. Agustin. Pt presents with calm mood and congruent affect. PHARMACY: [facility] ([phone]) [address] [place] [address].
--- NOTE | 2021-09-30 14:09 | NUR ---
GPS: Nursing Notes: Discharge Notes: Patient is awake and responding to his name, cooperative with nursing care, compliant with his medications, following staff directions, denies SI/HI, denies AH/VH, denies pain or discomfort at this time, denies SOB, discharge to [facility] at [address] [place] [address] , report given to facility's nurse - BRODERICK De La Torre excavating supervisor, transported to facility via ambulance, took all his belongings with him. Patient's daughter - Aylin was notified of discharge by social studies department chair. Patient will follow up with Dr. Luna and Dr. Agustin at the facility for aftercare. compensator worker gave behavioral health and substance abuse referrals.
[2021-09-30 20:59] LABS: BAND % (MANUAL) 2 % (0-10); EOSINOPHILS % (MANUAL) 2 % (0-8); LYMPHOCYTES % (MANUAL) 47 % (20-40); METAMYELOCYTES % 2 % (0-1); MONOCYTES % (MANUAL) 6 % (2-10); NEUTROPHILS % (MANUAL) 41 % (42-75)
== END 2021-09-30 13:30 | DRG 885 ==
LOC: GPS 14:42
PROVIDERS: ADMIT Psychiatry & Neurology Psychosomatic Medicine; ATTEND Nurse Practitioner Acute Care
DX: F25.0 Schizoaffective disorder, bipolar type (principal); I50.32 Chronic diastolic (congestive) heart failure; R45.851 Suicidal ideations; I13.0 Hypertensive heart and chronic kidney disease with heart failure and stage 1 through stage 4 chronic kidney disease, or unspecified chronic kidney disease; K62.5 Hemorrhage of anus and rectum; N18.2 Chronic kidney disease, stage 2 (mild); F15.10 Other stimulant abuse, uncomplicated; F17.210 Nicotine dependence, cigarettes, uncomplicated; D50.0 Iron deficiency anemia secondary to blood loss (chronic); F09 Unspecified mental disorder due to known physiological condition; E66.01 Morbid (severe) obesity due to excess calories; Z68.33 Body mass index [BMI] 33.0-33.9, adult; Z91.14 Patient's other noncompliance with medication regimen; Z87.11 Personal history of peptic ulcer disease; M19.90 Unspecified osteoarthritis, unspecified site; I48.91 Unspecified atrial fibrillation; E11.22 Type 2 diabetes mellitus with diabetic chronic kidney disease; Z79.84 Long term (current) use of oral hypoglycemic drugs; Z91.51 Personal history of suicidal behavior
CPT/HCPCS: 36415; 70030-TC; 80164; 82378; 83550; 83735; 84100; 84443; 85025; 97161; J3490